=== PATIENT | female | born 1975 | race Caucasian/White ===

== ENCOUNTER 2018-09-01 05:57 | Day surgery (SDC) | payer OTHER ==
[2018-08-31 16:40] VITALS: BMI 23.7
[~2018-09-01] VITALS: Ht 162.6 cm; Wt 61.9 kg
[2018-09-01] VITALS (23 sets, daily range): BP systolic 111–145; BP diastolic 68–99; PULSE 69–86; RESP 10–20; Ht 162.6 cm; Wt 61.9 kg
[~2018-09-01 05:57] MED LIST: AMLO-147 PO
[2018-09-01] MEDS ORDERED: BUPIVACAINE 0.5%/EPI (SDV) 30 ML INJ ONE (06:51)
[2018-09-01] MEDS ORDERED: ONDANSETRON 4 MG INJ ONE (07:32)
[2018-09-01] MEDS ORDERED: PROPOFOL 20 ML ONE (07:32)
[2018-09-01] MEDS ORDERED: ROCURONIUM 50 MG INJ ONE (07:32)
[2018-09-01] MEDS ORDERED: MIDAZOLAM 1 MG/ML 2 ML INJ ONE ×2 (07:32→07:49)
[2018-09-01] MEDS ORDERED: SUCCINYLCHOLINE CHLORIDE 100 MG/5 ML SYG IV ONE (07:32)
[2018-09-01] MEDS ORDERED: METOCLOPRAMIDE 10 MG INJ ONE (07:32)
[2018-09-01] MEDS ORDERED: FENTAnyl 50 MCG/ML VIAL ONE (07:32)
--- NOTE | 2018-09-01 07:38 | HPN ---
Date/Time of Note Date/Time of Note DATE: 09/01/18 TIME: 07:38 Interval H&P Admission Note Pt. seen H&P reviewed: No system changes WINIFRED BENTLEY MD Sep 01, 2018 07:38
[2018-09-01] MEDS ORDERED: LIDOCAINE 100 MG SYRINGE ONE (07:55)
[2018-09-01] MEDS ORDERED: CEFAZOLIN 1 GM INJ ONE (07:55)
[2018-09-01] MEDS ORDERED: PHENYLephrine (100 MCG/ML) 10ML SYG ONE (07:55)
[2018-09-01] MEDS ORDERED: HYDROmorphONE 1 MG/5 ML IV SYRINGE IV PRN (08:00)
[2018-09-01] MEDS ORDERED: LORAZEPAM 2 MG INJ IV PRN (08:00)
[2018-09-01] MEDS ORDERED: DIPHENHYDRAMINE 50 MG INJ IV PRN (08:00)
[2018-09-01] MEDS ORDERED: KETOROLAC 30 MG INJ IV PRN (08:00)
[2018-09-01] MEDS ORDERED: hydrALAzine 20 MG INJ IV PRN (08:00)
[2018-09-01] MEDS ORDERED: MEPERIDINE 25 MG INJ IV PRN (08:00)
[2018-09-01] MEDS ORDERED: LABETALOL HCL 20MG INJ IV PRN (08:00)
[2018-09-01] MEDS ORDERED: ALBUTEROL 0.083% (NEB) 2.5 MG/3 ML AMP HHN PRN (08:00)
[2018-09-01] MEDS ORDERED: ONDANSETRON 4 MG INJ IV PRN ×2 (08:00→08:30)
[2018-09-01] MEDS ORDERED: OXYCODONE/ACETAMINOPHEN (5/325) TAB PO PRN ×3 (08:00→08:30)
[2018-09-01] MEDS ORDERED: FENTAnyl 50 MCG/ML VIAL IV PRN (08:00)
[2018-09-01] MEDS ORDERED: METOCLOPRAMIDE 10 MG INJ IV PRN (08:00)
[2018-09-01] MEDS ORDERED: morphine (1 MG/ML) 10ML SYRINGE IV PRN (08:00)
--- NOTE | 2018-09-01 08:15 | PREAC ---
Date/Time of Note Date/Time of Note DATE: 09/01/18 TIME: 08:03 Anesthesia Eval and Record Evaluation Time Pre-Procedure Interview DATE: 09/01/18 TIME: 08:03 Age 43 Sex female NPO: 8 hrs Preoperative diagnosis Right femoral hernia Planned procedure Repair right femoral hernia with mesh Past Medical History Past Medical History: Includes Cardio: HTN Pulm: Other (just recovering from cold with cough; no fever, non-productive, clear to auscultation; normal energy level, no h/o reactive airway disease) Neuro: CVA Surgery & Anesthesia Issues No known issue Meds Anticoagulation: No Beta Narendra within 24 hr: Yes Reported Medications Amlodipine Besylate* (Amlodipine Besylate*) 10 Mg Tablet, 10 MG PO DAILY, #30 TAB 08/31/18 Meds reviewed: Yes Allergies Coded Allergies: No Known Allergy (Unverified , 09/01/18) Allergies Reviewed: Yes Labs/Studies Labs Reviewed: Reviewed by anesthesiologist test: Negative Studies: ECG Pre-procedure Exam Last vitals Vital Signs Date Temp Pulse Resp B/P (MAP) Pulse Ox O2 O2 Flow FiO2 Time Delivery Rate 09/01/18 98.0 69 18 123/87 98 Room Air 06:46 (99) Airway: Adequate mouth opening, Adequate thyromental dist Mallampati: Mallampati I Teeth: Normal Lung: Normal Heart: Normal ASA Physical Status ASA physical status: 2 Emergency: None Planned Pain Management Parenteral pain med, Local by surgeon Pre-operative Attestations Prior to commencing anesthesia and surgery, the patient was re-evaluated, there was verification of: *The patient's identity *The results of appropriate recent lab work and preoperative vital signs *The above evaluation not changing prior to induction *Anesthetic plan, risk benefits, alternative and complications discussed with patient/family; questions answered; patient/family understands, accepts and wishes to proceed. Yamilex Suero Sep 01, 2018 08:15
[2018-09-01] MEDS ORDERED: ESMOLOL 10 ML ONE (08:24)
--- NOTE | 2018-09-01 08:24 | OPR ---
Date/Time of Note Date/Time of Note DATE: 09/01/18 TIME: 08: Operative Report Procedure Date: Sep 01, 2018 Preoperative Diagnosis Right femoral hernia without obstruction Postoperative Diagnosis Right femoral hernia without obstruction Operation/Procedure Performed 1. Repair right femoral hernia with medium plug 2. Right ilioinguinal nerve block Surgeon Lokesh Bentley MD Snowboarder None Anesthesia Type: general Anesthesiologist: Yamilex Suero Estimated Blood Loss: minimal Transfusion none Specimen None Grafts/Implants Bard medium PerFix plug Tubes/Drains None Complications none Pt Condition Post Procedure: stable Disposition: PACU Indications Symptomatic right femoral hernia Procedure Description After satisfactory general anesthesia was achieved, the lower abdomen was prepped and draped in the usual fashion. A 4 cm transverse skin incision was made through the lateral aspect of the Pfannenstiel scar down to the level of the external oblique aponeurosis. Both the femoral hernia was identified and dissected circumferentially. The femoral ring was dilated to 1 cm, and the hernia reduced. The reduction was maintained by placement of a Bard medium PerFix plug which was secured circumferentially to healthy fascia with interrupted 3-0 Vicryl sutures. Next a right ilioinguinal nerve block was performed. 10 cc of 0.25% Marcaine with epinephrine were injected into the fascia 1 cm medial and inferior to the right anterior iliac spine. 10 more cc of local anesthetic were injected into the skin and subcutaneous tissues. The subcu was closed with interrupted 3-0 Vicryl suture, and skin closed with subcuticular absorbable merlin. Sponge and needle counts were reported as correct x2. LOKESH BENTLEY MD Sep 01, 2018 08:24
[2018-09-01] MEDS ORDERED: morphine 2 MG INJ IV PRN (08:30)
--- NOTE | 2018-09-01 09:32 | PAC ---
Date/Time of Note Date/Time of Note DATE: 09/01/18 TIME: 09:32 Post-Anesthesia Notes Post-Anesthesia Note Last documented vital signs Vital Signs Date Temp Pulse Resp B/P (MAP) Pulse Ox O2 O2 Flow FiO2 Time Delivery Rate 09/01/18 72 10 133/88 100 Mask 09:11 (103) 09/01/18 98.0 08:43 Activity: WNL Respiratory function: WNL Cardiovascular function: WNL Mental status: Baseline Pain reasonably controlled: Yes Hydration appropriate: Yes Nausea/Vomiting absent: Yes Comments patient doing well, ready to go to floor / home Yamilex Suero Sep 01, 2018 09:32
== END 2018-09-01 12:00 | disposition home or self-care (01) ==
LOC: SDS 05:57
PROVIDERS: ATTEND Surgery
DX: K41.90 Unilateral femoral hernia, without obstruction or gangrene, not specified as recurrent (principal)
CPT/HCPCS: 49550; J0690; J2001; J2175; J2250; J2370; J2405; J2765; J3010; Z7610; C1781